=== PATIENT | female | born 1995 | race Caucasian/White ===

== ENCOUNTER 2019-10-28 16:17 | Emergency (ER) | payer MEDICAID ==
--- NOTE | 2019-10-28 16:50 | PHYS DOC ---
Adult General Chief Complaint Chief Complaint: COUGH HPI HPI Patient is a 24-year-old female who presents with complaint of fever and chills as well as body aches and headache. She also has a dry cough. She states that she has a sore throat and feels like she has a lot of postnasal drip. Symptoms have been present for the last 2 days.[] Review of Systems Review of Systems Constitutional: Positive fever and chills [] HENT: Positive nasal congestion and sore throat [] Respiratory: Positive cough without shortness of breath [] Cardiovascular: No additional information not addressed in HPI [] Musculoskeletal: Positive body aches/pain [] Integument: Denies rash or skin lesions [] Physical Exam Physical Exam Constitutional: Well developed, well nourished, no acute distress, non-toxic appearance. [] Cardiovascular: Regular rate and rhythm[] Lungs & Thorax: Bilateral breath sounds clear to auscultation [] Skin: Warm, dry, no erythema, no rash. [] Neurologic: Alert and oriented X 3, no focal deficits noted. [] EKG EKG [] Radiology/Procedures Radiology/Procedures [] Course & Med Decision Making Course & Med Decision Making Pertinent Labs and Imaging studies reviewed. (See chart for details) [] Dragon Disclaimer Dragon Disclaimer This electronic medical record was generated, in whole or in part, using a voice recognition dictation system. Departure Departure: Impression: Primary Impression: Acute bronchitis Disposition: 01 HOME, SELF-CARE Condition: STABLE Referrals: PCP,NO (PCP) Patient Instructions: Acute Bronchitis Scripts Azithromycin (ZITHROMAX) 250 Mg Tablet 1 PKG PO UD for infection, #6 TAB Prov: YANNA GREGORY Jr. DO 10/28/19 Problem Qualifiers Primary Impression: Acute bronchitis Bronchitis organism: unspecified organism Qualified Codes: J20.9 - Acute bronchitis, unspecified YANNA GREGORY Jr. DO Oct 28, 2019 16:50
[2019-10-28 17:12] LABS: INFLUENZA A PATIENT NEGATIVE (NEGATIVE); INFLUENZA B PATIENT NEGATIVE (NEGATIVE)
[2019-10-28] MEDS ORDERED: AZIT250T PO (17:38)
[2019-10-28] MEDS ORDERED: AZITHROMYCIN 250 MG TABLET. PO ONE (17:45)
[2019-10-28 17:51] VITALS: BP 104/67
== END 2019-10-28 17:51 | disposition home or self-care (01) ==
LOC: ER 16:17
DX: J20.9 Acute bronchitis, unspecified (principal)
CPT/HCPCS: 87804; 99284

== ENCOUNTER 2022-02-16 12:04 | Emergency (ER) | payer MEDICAID ==
[~2022-02-16] VITALS: Ht 152.4 cm; Wt 81.8 kg
[2022-02-16 12:04] VITALS: BP 98/64
[~2022-02-16 12:04] MED LIST: AZIT250T PO
[2022-02-16 12:46] LABS: BACTERIA,URINE FEW /HPF (0-FEW); CLARITY,URINE CLEAR; COLOR,URINE YELLOW; GLUCOSE,URINE NEG (NEG); NITRITE,URINE POS (NEG); SQUAMOUS EPITHELIAL CELL,UR MANY /LPF; UROBILINOGEN,URINE 0.2 mg/dL (0.2 mg/dL); WBC,URINE OCC /HPF (0-4)
--- NOTE | 2022-02-16 12:46 | PHYS DOC ---
Past History Past Medical History: No Pertinent History Past Surgical History: No Surgical History Alcohol Use: None Drug Use: None General Adult EDM: Chief Complaint: PAIN ON URINATION HPI: HPI: 26-year-old female presents with pelvic pressure with urination and urinary frequency. The patient was recently treated for UTI, she stopped the antibiotics 4 days ago and now has the same symptoms again. She also has a sound in her right ear when she turns her head to the left. She denies fever or chills. She has no other symptoms of illness at this time. Review of Systems: Review of Systems: Constitutional: Denies fever or chills Eyes: Denies change in visual acuity HENT: Denies nasal congestion or sore throat. Sound in right ear with head mo tion. Respiratory: Denies cough or shortness of breath Cardiovascular: Denies chest pain or edema GI: Denies abdominal pain, nausea, vomiting, bloody stools or diarrhea : Dysuria, urinary frequency Musculoskeletal: Denies back pain or joint pain Integument: Denies rash Neurologic: Denies headache, focal weakness or sensory changes Endocrine: Denies polyuria or polydipsia Lymphatic: Denies swollen glands Psychiatric: Denies depression or anxiety Allergies: Allergies: Allergies Coded Allergies Type Severity Reaction Last Updated Verified No Known Drug Allergies 10/28/19 No Physical Exam: PE: Constitutional: Well developed, well nourished, obese, no acute distress, non- toxic appearance. [] HENT: Normocephalic, atraumatic, bilateral external ears normal, oropharynx moist, no oral exudates, nose normal. [] Eyes: PERRLA, EOMI, conjunctiva normal, no discharge. [] Neck: Normal range of motion, no tenderness, supple, no stridor. [] Cardiovascular: Heart rate regular rhythm, no murmur [] Lungs & Thorax: Bilateral breath sounds clear to auscultation [] Abdomen: Bowel sounds normal, soft, no tenderness, no masses, no pulsatile masses. [] Skin: Warm, dry, no erythema, no rash. [] Back: No tenderness, no CVA tenderness. [] Extremities: No tenderness, no cyanosis, no clubbing, ROM intact, no edema. [] Neurologic: Alert and oriented X 3, normal motor function, normal sensory function, no focal deficits noted. [] Psychologic: Affect normal, judgement normal, mood normal. [] EKG: EKG: [] Radiology/Procedures: Radiology/Procedures: [] Heart Score: C/O Chest Pain: N/A Risk Factors: Risk Factors: DM, Current or recent (<one month) smoker, HTN, HLP, family history of CAD, obesity. Risk Scores: Score 0 - 3: 2.5% MACE over next 6 weeks - Discharge Home Score 4 - 6: 20.3% MACE over next 6 weeks - Admit for Clinical Observation Score 7 - 10: 72.7% MACE over next 6 weeks - Early Invasive Strategies Course & Med Decision Making: Course & Med Decision Making Pertinent Labs and Imaging studies reviewed. (See chart for details) The patient had her susceptibility from her previous urinary test and it was susceptible to the Bactrim that they prescribed. The patient's urinalysis here is positive for nitrate indicating a UTI. I will assume this is a new infection. I will treat her with Macrobid for 5 days. She is stable for discharge at this time. [] Natalio Disclaimer: Natalio Disclaimer: This electronic medical record was generated, in whole or in part, using a voice recognition dictation system. Departure Departure: Impression: Primary Impression: UTI (urinary tract infection) Disposition: HOME / SELF CARE / HOMELESS Condition: STABLE Referrals: PCPJENNIFER (PCP) Patient Instructions: Urinary Tract Infection, [id number] Scripts Nitrofurantoin Monohyd/M-Cryst (MACROBID 100 MG CAPSULE) 100 Mg Capsule 1 CAP PO BID for UTI for 5 Days, #10 CAP 0 Refills Prov: DREW OSEI DO 02/16/22 DREW OSEI DO Feb 16, 2022 12:46
[2022-02-16 13:01] LABS: U PREG PATIENT NEGATIVE (NEG)
[2022-02-16] MEDS ORDERED: NITR100C62 PO (13:22)
== END 2022-02-16 13:27 | disposition home or self-care (01) ==
LOC: ER 12:04
DX: N39.0 Urinary tract infection, site not specified (principal); Z87.440 Personal history of urinary (tract) infections
CPT/HCPCS: 81001; 81025; 87086; 99283